=== PATIENT | female | born 1980 | race Two or more races ===

== ENCOUNTER 2022-10-11 03:20 | Emergency (ER) | payer OTHER ==
[~2022-10-11] VITALS: Ht 162.6 cm; Wt 70.3 kg
[2022-10-11] MEDS ORDERED: SYNTHROID50 MCG (03:35)
== END 2022-10-11 09:38 | disposition home or self-care (01) ==
LOC: ER 03:20
DX: F12.929 Cannabis use, unspecified with intoxication, unspecified (principal)